=== PATIENT | female | born 1970 | race Caucasian/White ===

== ENCOUNTER → 2020-04-03 | Outpatient (CLI) | payer OTHER | LOC: OPSV 14:00 | PROC: 02HV33Z Insertion of Infusion Device into Superior Vena Cava, Percutaneous Approach (ICD-10-PCS; principal; 2020-04-03) | DX: C21.0 Malignant neoplasm of anus, unspecified (principal); F17.210 Nicotine dependence, cigarettes, uncomplicated ==